=== PATIENT | female | born 1990 | race Caucasian/White ===

== ENCOUNTER 2019-11-28 07:05 | Inpatient (IN) | payer OTHER, SELFPAY ==
[2019-11-28] VITALS (115 sets, daily range): BP systolic 90–146; BP diastolic 45–99; PULSE 36–80; RESP 16; TEMP 36.8–36.9; O2SAT 86–100; BMI 23.0
--- NOTE | 2019-11-28 07:24 | PM.IMHP ---
H&P: HPI History of Present Illness Chief complaint: Contractions Narrative: Florencia Perkins is a 29 year old female whose last menstrual period was 03/16/2019, EDC is 12/21/2019, presents at 36-,5/7 weeks gestation in active labor. Her B strep is pending. Her has been uncomplicated thus far Review of Systems Review of Systems: All systems reviewed & are unremarkable except as noted in HPI and below Meds Home Medications and Allergies Allergies Allergy/AdvReac Type Severity Reaction Status Date / Time No Known Allergies Allergy Unverified 04/03/18 21:19 Exam Const: General: no acute distress Eyes: General: appearance normal, both eyes and all related structures Neck: Neck: supple and no JVD Thyroid: thyroid normal Resp: Effort & Inspection: normal respiratory effort Auscultation: clear to auscultation bilaterally Cardio: Rate: regular rate Rhythm: regular rhythm GI: Inspection: non-distended GI Palp: Yes Soft to palpation, No Tenderness to palpation present (GI) and No Guarding due to palpation present (GI) Auscultation: normal bowel sounds : General: Yes other ( gravid uterus with regular uterine contractions) Bimanual Exam- Adnexa, other: other ( cervix4 by RN exam. heart tones were reassuring) Skin: General skin exam: no rashes or lesions noted Extrem: General: normal to inspection and no edema Psych: Mental Status: mental status grossly normal Affect: normal affect Assessment and Plan Additional Plan impression: 36 and half week in active labor Plan: Spontaneous vaginally with expected. She has an epidural candidate. Group B strep prophylaxis undertaken as status unknown
--- NOTE | 2019-11-28 07:30 | LDADM ---
This patient, Florencia Perkins, was admitted to Labor/Delivery/Recovery 106 on 11/28/19 at 07:05. Plans for labor, pain management and were discussed with patient. Patient/family oriented to hospital policies and general routines including ID bracelet, bed and alarms, visiting hours, pain management, procedures, bathroom and other care routines, personal items, smoking policy, room service/diet and guest tray routines, security routines, and visiting hours. Patient/Family are encouraged to report perceived risks to care and to ask questions if they do not understand what they are told or what they should do. See OBIX for further documentation.
[2019-11-28] MEDS: LACTATED RINGERS 1,000 ML 125 ML IV CONT ×2 (07:54→08:38)
[2019-11-28] MEDS: AMPICILLIN 2 GM/NS 100 ML 2 GM/100 ML BAG IVPB (07:55)
[2019-11-28 08:08] LABS: Basophils Absolute Auto 0.1 K/mm3 (0.0-0.1); Basophils Percent Auto 0.5 % (0.2-1.2); Eosinophils Absolute Auto 0.1 K/mm3 (0-0.3); Eosinophils Percent Auto 1.1 % (0-4.4); Hematocrit 39.7 % (37.0-47.0); Hemoglobin 13.5 g/dL (12.0-15.0); Immature Granulocyte Absolute 0.12 K/mm3 (0.00-0.031); Immature Granulocyte Percent A 1.1 % (0-0.5); Lymphocytes Absolute Auto 2.68 K/mm3 (0.9-3.2); Lymphocytes Percent Auto 23.8 % (18.3-44.2); Mean Corpuscular Hemoglobin 31.3 pg (26-34); Mean Corpuscular Volume 92.1 fl (80-100); Mean Platelet Volume 10.8 fl (7.4-10.4); Monocytes Absolute Auto 0.8 K/mm3 (0.1-0.6); Monocytes Percent Auto 6.7 % (2.6-8.5); Neutrophils Absolute Auto 7.5 K/mm3 (1.3-6.7); Neutrophils Percent Auto 66.8 % (45.5-73.1); Platelet Count Result 191 k/mm3 (150-375); Red Blood Count 4.31 M/mm3 (4.2-5.4); Red Cell Distribution Width 13.5 % (11.5-14.5); White Blood Count 11.3 K/mm3 (4.5-10.0)
--- NOTE | 2019-11-28 08:56 | P.PNOB_ITS ---
OB - PN: Subj Subjective Date/time seen: 11/28/19 08:56 cx 5/80/-1 arom light [facility] fhts ok epidural in OB - PN: Obj Data Labs CBC & Chem 7: 11/28/19 07:58 Labs: Laboratory Results - last 24 hr 11/28/19 07:58 WBC 11.3 H RBC 4.31 Hgb 13.5 Hct 39.7 MCV 92.1 MCH 31.3 MCHC 34.0 RDW 13.5 Plt Count 191 MPV 10.8 H Immature Gran % (Auto) 1.1 H Neut % (Auto) 66.8 Lymph % (Auto) 23.8 [place] % (Auto) 6.7 Eos % (Auto) 1.1 Baso % (Auto) 0.5 Lymph # (Auto) 2.68 [place] # (Auto) 0.8 H Eos # (Auto) 0.1 Baso # (Auto) 0.1 Abs Immat Gran (auto) 0.12 H Absolute Neuts (auto) 7.5 H Absolute Nucleated RBC 0.0 Nucleated RBC % 0.0 OB - PN A/P Time Spent With Patient Time: Total time spent is greater than 50% in coordination of care (as documented) at patient's floor/unit and/or counseling patient:
[2019-11-28 09:30] LABS: Amphetamine Screen Urine Negative (Negative); Barbiturate Screen Urine Negative (Negative); Benzodiazepines Screen Urine Negative (Negative); Cannabinoid Screen Urine Positive (Negative); Cocaine Screen Urine Negative (Negative); Methadone Screen Urine Negative (Negative); Opiate Screen Urine Negative (Negative); Phencyclidine Screen Urine Negative (Negative)
[2019-11-28] MEDS: OXYTOCIN 30 UNITS/NS 500 ML 30 UNITS/500 ML BAG 999 UNITS IV CONT (11:00)
[2019-11-28] MEDS: OXYTOCIN 30 UNITS/NS 500 ML 30 UNITS/500 ML BAG 125 UNITS IV CONT (11:34)
[2019-11-28] MEDS: ONDANSETRON INJ 4 MG/2 ML VIAL IV PUSH (12:58)
[2019-11-28] MEDS: WITCH HAZEL 40 PADS 1 PAD TOPICAL (14:13)
[2019-11-28] MEDS: BENZOCAINE 20% AER SPR (*SP) 56 GM CAN 1 SPRAY TOPICAL (14:13)
[2019-11-28] MEDS: ACETAMINOPHEN 325 MG TABLET 650 MG PO (17:57)
[2019-11-28] MEDS: POLYSACCHARIDE IRON COMPLEX 150 MG CAPSULE PO (17:57)
[2019-11-28] MEDS: IBUPROFEN 600 MG TABLET PO (17:57)
[2019-11-28] MEDS: DOCUSATE SODIUM 100 MG CAPSULE PO (17:57)
[2019-11-28] MEDS: TETANUS,DIPHTHERIA,AC PERTUSSIS ADULT (0.5 ML) BOOSTRIX IM (17:58)
[2019-11-29] VITALS (12 sets, daily range): BP systolic 82–150; BP diastolic 46–92; PULSE 48–66; RESP 14–20; TEMP 36.2–36.7; O2SAT 95–100
[2019-11-29] MEDS: IBUPROFEN 600 MG TABLET PO ×2 (00:44→14:36)
[2019-11-29] MEDS: SIMETHICONE 80 MG TAB.CHEW PO (00:44)
[2019-11-29 05:42] LABS: Hematocrit 29.3 % (37.0-47.0); Hemoglobin 9.8 g/dL (12.0-15.0)
--- NOTE | 2019-11-29 06:42 | PM.OBPNVD ---
OB - PN: Subj Subjective Date/time seen: 11/29/19 06:42 Interval history: btl today Patient comments: no complaints and pain well controlled baby status: doing well and nursing well OB - PN: Obj Data Labs CBC & Chem 7: 11/29/19 05:23 Labs: Laboratory Results - last 24 hr 11/28/19 11/28/19 11/28/19 07:58 07:58 09:03 WBC 11.3 H RBC 4.31 Hgb 13.5 Hct 39.7 MCV 92.1 MCH 31.3 MCHC 34.0 RDW 13.5 Plt Count 191 MPV 10.8 H Immature Gran % (Auto) 1.1 H Neut % (Auto) 66.8 Lymph % (Auto) 23.8 [place] % (Auto) 6.7 Eos % (Auto) 1.1 Baso % (Auto) 0.5 Lymph # (Auto) 2.68 [place] # (Auto) 0.8 H Eos # (Auto) 0.1 Baso # (Auto) 0.1 Abs Immat Gran (auto) 0.12 H Absolute Neuts (auto) 7.5 H Absolute Nucleated RBC 0.0 Nucleated RBC % 0.0 Urine Opiates Screen Negative Urine Methadone Screen Negative Ur Barbiturates Screen Negative Ur Phencyclidine Scrn Negative Ur Amphetamine Screen Negative U Benzodiazepines Scrn Negative Urine Cocaine Screen Negative U Cannabinoids Screen Positive A Blood Type O Positive Antibody Screen Negative 11/29/19 05:23 WBC RBC Hgb 9.8 L D Hct 29.3 L MCV MCH MCHC RDW Plt Count MPV Immature Gran % (Auto) Neut % (Auto) Lymph % (Auto) [place] % (Auto) Eos % (Auto) Baso % (Auto) Lymph # (Auto) [place] # (Auto) Eos # (Auto) Baso # (Auto) Abs Immat Gran (auto) Absolute Neuts (auto) Absolute Nucleated RBC Nucleated RBC % Urine Opiates Screen Urine Methadone Screen Ur Barbiturates Screen Ur Phencyclidine Scrn Ur Amphetamine Screen U Benzodiazepines Scrn Urine Cocaine Screen U Cannabinoids Screen Blood Type Antibody Screen OB - PN A/P Plan day: 1 Comments: btl reviewed Time Spent With Patient Time: Total time spent is greater than 50% in coordination of care (as documented) at patient's floor/unit and/or counseling patient: Time with patient: less than 15 minutes Review of Systems Review of Systems: All systems reviewed & are unremarkable except as noted in HPI and below Exam Const: General: no acute distress Eyes: General: appearance normal, both eyes and all related structures Neck: Neck: supple and no JVD Thyroid: thyroid normal Resp: Effort & Inspection: normal respiratory effort Auscultation: clear to auscultation bilaterally Cardio: Rate: regular rate Rhythm: regular rhythm GI: Inspection: non-distended GI Palp: Yes Soft to palpation, No Tenderness to palpation present (GI) and No Guarding due to palpation present (GI) Auscultation: normal bowel sounds : General: Yes bladder normal to palpation External Female Exam: normal external appearance Speculum Exam - Vagina: normal vaginal discharge and No vaginal bleeding Speculum Exam - Cervix: nontender Bimanual exam- vagina & uterus: bladder normal to palpation and No Cervical tenderness present OB/external & speculum: No vaginal bleeding Skin: General skin exam: no rashes or lesions noted Extrem: General: normal to inspection and no edema Psych: Mental Status: mental status grossly normal Affect: normal affect
[2019-11-29 07:30] LABS: Rapid Plasma Reagin Non-Reactive (NonReactive)
--- NOTE | 2019-11-29 09:49 | WPDANLDPN2 ---
Anes-Prog Note L&D Date/Time: 11/29/19 09:49 Comfortable throughout: labor and delivery Epidural/Spinal procedure site: clean & non-tender Neuro status: Neuro function grossly intact. Cardiovascular status: normal Respiratory status: normal Airway patency: baseline Mental status: baseline Post-Op hydration status: normal Vital Signs: Last Vital Signs Temp 36.7 C 11/29/19 07:25 Pulse 48 L 11/29/19 07:25 Resp 16 11/29/19 07:25 BP 82/46 L 11/29/19 07:25 Pulse Ox 98 11/29/19 07:25 Post-procedural complaints: none Patient feedback: Patient satisfied with anesthetic care.
[2019-11-29] MEDS: LACTATED RINGERS 1,000 ML 30 ML IV CONT (11:15)
--- NOTE | 2019-11-29 11:45 | WPDANESEPPF ---
Anes - Initial Pre Proc Eval Procedure: Operation Date: 11/29/19 12:30 Proposed Procedures p Post- Tubal Ligation - Ilya Camacho MD Date/Time: 11/29/19 11:45 Surgeon: Ilya Camacho MD Pre Op Diagnosis: Contractions Patient Data Age: 29 Gender: F Height: 1.6 m Weight: 59 kg Last Vital Signs Temp 36.7 C 11/29/19 07:25 Pulse 48 L 11/29/19 07:25 Resp 16 11/29/19 07:25 BP 82/46 L 11/29/19 07:25 Pulse Ox 98 11/29/19 07:25 Allergies Allergy/AdvReac Type Severity Reaction Status Date / Time No Known Allergies Allergy Verified 11/28/19 10:22 Home Medications Medication Instructions Recorded Confirmed Type PNV cmb#95-ferrous fumarate-FA 1 tablet PO DAILY 11/28/19 11/28/19 History [] cholecalciferol (vitamin D3) 50,000 unit PO WEEKLY 11/28/19 11/28/19 History hydrocodone-acetaminophen [[place]] 1 tablet PO Q4H PRN #30 tablet 11/29/19 Rx Laboratory Tests 11/28/19 11/29/19 07:58 05:23 Hgb 9.8 g/dL L D g/dL (12.0-15.0) Hct 29.3 % L % (37.0-47.0) RPR Non-reactive (NonReactive) Patient hx anesthesia problems: none Family hx anesthesia problems: none [facility] Social History Social History Smoking packs per day: 1 Smoking cigarettes per day: 20.0 Years smoked: 11 Smoking pack-years: 11.00 Smoking status: Current every day smoker Tobacco type: cigarettes Second hand tobacco smoke exposure: Yes Additional smoking assessment comments: Has cut down to .75 PPD during Substance use: current Last use: 11/27/19 Spiritual care concerns: No Anes - Eval Final PreProcedure Day of Procedure 11/29/19 11:45 Patient weight: normal Heart: regular rate and rhythm Lungs: clear to auscultation and normal air movement Airway: Mallampati scale class II Neurological: alert and oriented Last oral intake: >/= 8 hours ASA classification: II Emergent: no Anesthetic plan: proceed Anesthesia type and monitoring: general Informed Consent: The patient's anesthetic plan and its attendant risks and benefits were discussed with the patient/family/POA. Questions were solicited and answers provided to the satisfaction of the patient/family/POA.
--- NOTE | 2019-11-29 12:05 | SUR.PREOP ---
1110 EPIDURAL CATHETER NOTED TO BACK
--- NOTE | 2019-11-29 12:57 | PM.PROC ---
Procedure Note - Detailed Date of procedure: 11/29/19 Pre-op diagnosis: Contractions Surgeon: Ilya Camacho MD Postop diagnosis: day 1 desires permanent sterilization Procedure: Modified Ann bilateral tubal ligation EBL: 5Cc Anesthesia: General endotracheal Complications: None Findings: Normal uterus normal ovaries and tubes Description of procedure: Patient was prepped draped in normal sterile fashion placed in supine position. Under excellent general trach anesthesia the abdomen was entered through a small infraumbilical incision this was carried through the layers to the fascia fascia was incised and the peritoneum was opened by sharp dissection. The left fallopian tube was grasped at its midportion. This was traversed to the inferior created in reverse to the midportion. A good knuckle of tube was free tied with 0 chromic the peritoneum between was pierced and the distal proximal legs were free tied with 0 the portion between incised with Metzenbaum scissors passed as well portion of left fallopian tube. Hemostasis was assured in this was returned to the abdomen. The right fallopian tube was then grasped visits midportion traversed to the fimbriated end and return 1st to the midportion. Free tie 0 chromic was made knuckle of tube with 0 chromic. Peritoneum was pierced and the distal proximal portion was free tied portion between cut and passed as portion right fallopian tube. Hemostasis was assured tube was returned to the abdomen laps removed and accounted for the fascia was closed with continuous running 0 Vicryl lateral edge to lateral edge skin closed with 4 Monocryl and glue patient was awakened and went to recovery in satisfactory condition. All sponge, needle, instrument counts were correct. There were no immediate complications
--- NOTE | 2019-11-29 12:59 | P.DS_ITS ---
DS: Admitting Diagnosis Admitting Diagnosis Admitting Diagnosis: term/desires sterilization DS: Summary Time Spent with Patient Time attestation: Total time spent providing and/or coordinating discharge services: Exam Const: General: no acute distress Eyes: General: appearance normal, both eyes and all related structures Neck: Neck: supple and no JVD Thyroid: thyroid normal Resp: Effort & Inspection: normal respiratory effort Auscultation: clear to auscultation bilaterally Cardio: Rate: regular rate Rhythm: regular rhythm GI: Inspection: non-distended GI Palp: Yes Soft to palpation, No Tenderness to palpation present (GI) and No Guarding due to palpation present (GI) Auscultation: normal bowel sounds : General: Yes bladder normal to palpation External Female Exam: normal external appearance Speculum Exam - Vagina: normal vaginal discharge and No vaginal bleeding Speculum Exam - Cervix: nontender Bimanual exam- vagina & uterus: bladder normal to palpation and No Cervical tenderness present OB/external & speculum: No vaginal bleeding Skin: General skin exam: no rashes or lesions noted Extrem: General: normal to inspection and no edema Psych: Mental Status: mental status grossly normal Affect: normal affect DS: Data Data Completed and Pending Pending studies at discharge: Pending at discharge 11/29/19 12:41 Surgical [PTH] Routine Labs on day of discharge: Labs from last 24 hours 11/29/19 11/28/19 05:23 07:58 Hgb 9.8 L D Hct 29.3 L RPR Non-reactive Discharge Plan Discharge Attending physician on discharge: Ilya Camacho Discharging Clinician: Ilya Camacho Patient Disposition: Home, Self-Care Activity: may shower, no straining, may drive after 2 weeks and pelvic rest Diet: heart healthy Wound Care Instructions: incision open to air Patient Instructions: Antibiotic Form Stand Alone Forms: General Discharge Information Follow-up/Referrals: Ilya Camacho MD [Physician] - Discharge Medications: New hydrocodone-acetaminophen [[place]] 5-325 mg tablet 1 tablet PO Q4H PRN (Reason: pain) Qty: 30 RF: 0 Continued cholecalciferol (vitamin D3) 1,250 mcg (50,000 unit) capsule 50,000 unit PO WEEKLY RF: 0 PNV cmb#95-ferrous fumarate-FA [] 28 mg iron- 800 mcg Tablet 1 tablet PO DAILY RF: 0 Date of admission: 11/28/19 07:05 Primary Care Provider: PHYSICIAN,UPPER CUTTER MACHINE Admitting Provider: Ilya Camacho Attending physician on admission: Ilya Camacho
[2019-11-29] MEDS: ACETAMINOPHEN 325 MG TABLET 650 MG PO (14:35)
[2019-11-29] MEDS: DOCUSATE SODIUM 100 MG CAPSULE PO (14:36)
[2019-11-29] MEDS: POLYSACCHARIDE IRON COMPLEX 150 MG CAPSULE PO (14:36)
--- NOTE | 2019-11-29 14:42 | PC.NURSE ---
Pt received back from PACU per stretcher. Alert and oriented x3. Pt. ambulated to bathroom with assistance and voided without difficulty.
--- NOTE | 2019-12-10 13:30 | PM.DS ---
DS: Admitting Diagnosis Admitting Diagnosis Admitting Diagnosis: Encounter for supervision of normal , unspecified, third trimester desires sterilization DS: Summary Time Spent with Patient Time attestation: Total time spent providing and/or coordinating discharge services: Exam Const: General: no acute distress Eyes: General: appearance normal, both eyes and all related structures Neck: Neck: supple and no JVD Thyroid: thyroid normal Resp: Effort & Inspection: normal respiratory effort Auscultation: clear to auscultation bilaterally Cardio: Rate: regular rate Rhythm: regular rhythm GI: Inspection: non-distended GI Palp: Yes Soft to palpation, No Tenderness to palpation present (GI) and No Guarding due to palpation present (GI) Auscultation: normal bowel sounds : General: Yes bladder normal to palpation External Female Exam: normal external appearance Speculum Exam - Vagina: normal vaginal discharge and No vaginal bleeding Speculum Exam - Cervix: nontender Bimanual exam- vagina & uterus: bladder normal to palpation and No Cervical tenderness present OB/external & speculum: No vaginal bleeding Skin: General skin exam: no rashes or lesions noted Extrem: General: normal to inspection and no edema Psych: Mental Status: mental status grossly normal Affect: normal affect DS: Data Data Completed and Pending Completed studies during hospitalization: Pending at discharge 11/29/19 12:41 Surgical [PTH] Routine Discharge Plan Discharge Attending physician on discharge: Ilya Camacho Consulting providers: Cameron Gonzalez Discharging Clinician: Ilya Camacho Patient Disposition: Home, Self-Care Activity: may shower, no straining, may drive after 2 weeks and pelvic rest Diet: heart healthy Wound Care Instructions: incision open to air Discharge Instructions: Education: Mom and Baby Guide Given to: Follow-Up: Call your delivering provider's office for an appointment to be seen. Mom and baby should come to the [facility] for the follow-up appointment. Appointment Date/Time: December 01, 2019 at 10:00 am What to expect at your follow-up visit: Physical Assessment Call [phone] if you are unable to keep your appointment time. BREAST CARE: * Wear a snug supportive bra. * For engorgement discomfort: Bottle Feeding: * May apply ice packs ABDOMINAL INCISION: * Allow incision to air dry * Do NOT use lotions for powders on your incision * When showering, allow soap and water to run over the incision, but do not wash incision PERINEAL CARE: * Until bleeding stops, use your jf bottle after urinating * Change your pad frequently throughout the day * No tub baths until seen by your physician - You may shower ACTIVITY: * Rest as much as possible. * Do not exercise or lift anything heavier than your baby (such as laundry or other children.) * Avoid stairs or driving as much as possible. * Do not put anything into the vagina. No douching, tampons, or sexual activity until seen by physician. NOTIFY PHYSICIAN IF YOU HAVE ANY QUESTIONS OR IF ANY OF THE FOLLOWING SYMPTOMS OCCUR: * If your perineum becomes red, swollen, or more painful than what you have experienced in the hospital. * If your vaginal bleeding becomes foul smelling. * If your vaginal bleeding becomes more heavy than a period or if your bleeding changes from pink to bright red. However, you may pass an occasional walnut-sized clot once or twice for the first week . * If you experience a sharp, shooting pain in you calves. * If you discover a hard, reddened area on your breast or if you experience flu-like symptoms. DIET: * Eat regular, well-balanced meals. * Drink plenty of fluids daily. Stand Alone Forms: General Discharge Information Follow-up/Referrals: Ilya Camacho MD [Physician] - Discharge Medications: New hydrocodone-acetaminophen [[place]]
--- NOTE | 2019-12-12 10:53 | PM.OBPRVD ---
OB - Delivery Note Procedure Procedure: Procedures Operation Date: 11/29/19 12:30 Actual Procedures Side Surgeon p Post- Tubal Ligation Not Applicable Ilya Camacho MD Intrapartal events: None Induction method: AROM Delivery augmentation: pitocin Delivery monitor: external FHT Route of delivery: Episiotomy description: None Specimen: No Estimated blood loss (mL): 57 Anesthesia type: Epidural Disposition: floor Baby Weeks of gestation at delivery: 39 presentation: vertex position: Right Occiput Anterior cord vessel description: 3 Vessels
== END 2019-11-29 17:59 | disposition home or self-care (01) | DRG 541 ==
LOC: ANHLDR 11:07 → ANHOB2 14:29
PROVIDERS: Admitting Provider Obstetrics & Gynecology; Visit Provider Obstetrics & Gynecology
PROC: 0UL77ZZ Occlusion of Bilateral Fallopian Tubes, Via Natural or Artificial Opening (ICD-10-PCS; CPT 58605; principal; 2019-11-29 12:30)
DX: O77.0 Labor and delivery complicated by meconium in amniotic fluid (principal); Z37.0 Single live birth; Z3A.36 36 weeks gestation of pregnancy; O99.334 Smoking (tobacco) complicating childbirth; F17.210 Nicotine dependence, cigarettes, uncomplicated; O99.324 Drug use complicating childbirth; F12.90 Cannabis use, unspecified, uncomplicated; Z30.2 Encounter for sterilization
CPT/HCPCS: 36415; 80307; 85014; 85018; 85025; 86592; 86850; 86900; 86901; 88302; 90715; A9270; J0290; J0330; J1100; J1885; J2250; J2405; J2590; J2704; J2795; J3010; J7120

== ENCOUNTER 2022-01-13 08:35 | Emergency (ER) | payer OTHER, SELFPAY ==
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
--- NOTE | ~2022-01-13 | CT_ITS ---
EXAMINATION: CT facial & cervical spine wo DATE: 01/13/2022 09:52 INDICATION: Head injury. TECHNIQUE: Computed tomography (CT) of the maxillofacial region and cervical spine was performed with out intravenous contrast. Automated exposure control and iterative reconstruction technique were empl oyed. The dose-length product was 209.52 mGy-cm. COMPARISON: CT maxillofacial 08/07/14 FINDINGS: MAXILLOFACIAL CT: There is left cheek soft tissue swelling. There is leftward deviation of the nasal septum. There is a fracture of left nasal process of maxilla. There is minimal mucosal thickening in left maxillary sin us. There are carious lesions of bilateral mandibular molars. There are carious lesions of teeth 7 an d 8 with periapical lucencies. CERVICAL SPINE CT: There is mild kyphosis of cervical spine. Vertebral body heights and intervertebral disc heights are normal. At C7-T1, there is bilateral mild facet joint osteoarthritis. No neural foraminal stenosis or central canal stenosis. There is mild emphysema. IMPRESSION: 1. Fracture of left nasal process of maxilla. 2. Dental disease. Reviewed, dictated and finalized at location A.
[2022-01-13 08:39] VITALS: BP 127/89; PULSE 77; RESP 16; TEMP 36.4; O2SAT 99
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
--- NOTE | 2022-01-13 09:20 | PC.NURSE ---
pt wandered to lobby. pt redirected back to room.
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
[2022-01-13 09:43] LABS: Basophils Percent Auto 0.4 % (0.2-1.2); Eosinophils Percent Auto 0.1 % (0-4.4); Hematocrit 42.3 % (37.0-47.0); Hemoglobin 14.2 g/dL (12.0-15.0); Immature Granulocyte Absolute 0.08 K/mm3 (0.00-0.031); Immature Granulocyte Percent A 0.8 % (0-0.5); Lymphocytes Absolute Auto 1.24 K/mm3 (0.9-3.2); Lymphocytes Percent Auto 12.8 % (18.3-44.2); Mean Corpuscular HGB Conc 33.6 g/dl (32-36); Mean Corpuscular Hemoglobin 31.8 pg (26-34); Mean Corpuscular Volume 94.8 fl (80-100); Mean Platelet Volume 8.5 fl (7.4-10.4); Monocytes Absolute Auto 0.7 K/mm3 (0.1-0.6); Monocytes Percent Auto 6.9 % (2.6-8.5); Neutrophils Absolute Auto 7.6 K/mm3 (1.3-6.7); Platelet Count Result 228 k/mm3 (150-375); Red Blood Count 4.46 M/mm3 (4.2-5.4); Red Cell Distribution Width 13.2 % (11.5-14.5); White Blood Count 9.7 K/mm3 (4.5-10.0)
--- NOTE | 2022-01-13 09:52 | PC.NURSE ---
pt out to lobby again asking people in the vestibule if they smoke. pt told she needed to go back to room. pt became verbally aggressive stating she needed a cigarette. pt asked by myself, jean, and to go back to room. pt escalating. ayad roberts, told patient she can either go back to room and leave AMA as we are waiting for tests and imaging. pt chose to leave ama. pt called staff asshole as she ambulated away. pt ambulated with steady gait out of building and appeared to be in no distress.
--- NOTE | 2022-01-13 09:59 | PC.NURSE ---
Pt walks to dental front office assistant wanting to smoke a cigarette. Pt was informed by security and senior c developer that this is a no smoking campus and she should return to her room. Pt asks if she smokes a cigarette if they will kick her out and security informs her that they have the capability to do so. Pt becoming agitated and stating she is going to leave. This RN removes pt IV before she walks out calling us assholes under her breath.
[2022-01-13 10:05] LABS: Ethanol 189 mg/dL (<10)
[2022-01-13 10:06] LABS: Alanine Aminotransferase 21 U/L (6-35); Albumin Level 4.6 g/dL (3.5-5.1); Alkaline Phosphatase 67 U/L (38-126); Anion Gap 16 mmol/L (8-16); Aspartate Amino Transferase 40 U/L (14-36); Bilirubin,Total 0.7 mg/dL (0.2-1.3); Blood Urea Nitrogen 7 mg/dL (7-17); Calcium 8.2 mg/dL (8.4-10.2); Carbon Dioxide 21 mmol/L (22-30); Chloride 110 mmol/L (98-107); Estimated CRCL calculation 97 ml/min; Estimated Glomerular Filt Rate > 60; Glucose 126 mg/dL (65-110); Potassium 3.6 mmol/L (3.4-5.0); Sodium 147 mmol/L (137-145)
== END 2022-01-13 10:42 | disposition left against medical advice (07) ==
PROVIDERS: Emergency Provider Nurse Practitioner Family
DX: O9A.219 Injury, poisoning and certain other consequences of external causes complicating pregnancy, unspecified trimester (principal); S00.12XA Contusion of left eyelid and periocular area, initial encounter; S00.11XA Contusion of right eyelid and periocular area, initial encounter; S02.40DA Maxillary fracture, left side, initial encounter for closed fracture; O99.330 Smoking (tobacco) complicating pregnancy, unspecified trimester; F17.210 Nicotine dependence, cigarettes, uncomplicated; Z3A.00 Weeks of gestation of pregnancy not specified; Y04.2XXA Assault by strike against or bumped into by another person, initial encounter
CPT/HCPCS: 36415; 70450; 70486; 72125; 80053; 80307; 85025; 99284

== ENCOUNTER 2025-03-05 07:14 | Emergency (ER) | payer OTHER, SELFPAY ==
[2025-03-05 08:01] VITALS: BP 112/80; PULSE 120; RESP 16; TEMP 36.8; O2SAT 100
[2025-03-05] MEDS: KETOROLAC 15 MG/ML VIAL (*BKC) IV PUSH (08:16)
[2025-03-05] MEDS: ONDANSETRON INJ 4 MG/2 ML VIAL IV PUSH (08:16)
[2025-03-05] MEDS: LACTATED RINGERS 1,000 ML 999 ML IV CONT ×2 (08:17→10:21)
[2025-03-05 08:31] LABS: Hematocrit 45.9 % (37.0-47.0); Hemoglobin 15.6 g/dL (12.0-15.0); Immature Granulocyte Percent A 0.8 % (0-0.5); Lymphocytes Absolute Auto 1.09 K/mm3 (0.9-3.2); Mean Corpuscular HGB Conc 34.0 g/dl (32-36); Mean Corpuscular Hemoglobin 30.1 pg (26-34); Mean Corpuscular Volume 88.6 fl (80-100); Nucleated Red Blood Cells Absolute Auto 0.000 K/mm3 (0.0-0.012); Nucleated Red Blood Cells Perc 0.0 % (0.0-0.2); Platelet Count Result 196 k/mm3 (150-375); Red Blood Count 5.18 M/mm3 (4.2-5.4); White Blood Count 10.6 K/mm3 (4.5-10.0)
[2025-03-05 08:55] LABS: Alanine Aminotransferase 17 U/L (6-35); Albumin Level 4.2 g/dL (3.5-5.1); Alkaline Phosphatase 74 U/L (38-126); Anion Gap 10 mmol/L (4-12); Aspartate Amino Transferase 19 U/L (14-36); Bilirubin,Total 1.1 mg/dL (0.2-1.3); Blood Urea Nitrogen 10 mg/dL (7-17); Calcium 8.8 mg/dL (8.4-10.2); Carbon Dioxide 23 mmol/L (22-30); Chloride 97 mmol/L (98-107); Estimated CRCL calculation 80 ml/min; Estimated Glomerular Filt Rate > 60; Glucose 167 mg/dL (65-110); Sodium 130 mmol/L (137-145); Total Protein 7.5 g/dL (6.3-8.2)
[2025-03-05 09:03] LABS: Potassium 3.4 mmol/L (3.4-5.0)
[2025-03-05] MEDS: ACETAMINOPHEN 500 MG TABLET 1000 MG PO (10:21)
[2025-03-05] MEDS: METOCLOPRAMIDE HCL INJ 10 MG/2 ML VIAL IV PUSH (10:21)
[2025-03-05 10:27] VITALS: BP 108/85; PULSE 99; RESP 16; O2SAT 99
[2025-03-05 11:38] LABS: Influenza A QL RT-PCR Negative (Negative); Influenza B QL RT-PCR Negative (Negative); RSV RNA, RT-PCR Negative (Negative); SARS-CoV-2 RNA PCR Negative (Negative)
[2025-03-05 12:00] VITALS: BP 99/72; PULSE 80; RESP 14; TEMP 36.5; O2SAT 97
--- NOTE | 2025-03-05 13:38 | ED_ITS ---
HPI - General Adult General Chief complaint: Unspecified Stated complaint: sick for days Time Seen by Provider: 03/05/25 08:00 History of Present Illness HPI narrative: Patient presents because for last few days she has been feeling sick, body aches, nausea vomiting diarrhea, fevers and chills and sweats, unable to keep anything down. Related Data Home Medications ?Medication ?Instructions ?Recorded ?Confirmed ?Last Taken ?Type cholecalciferol (vitamin D3) 1,250 50,000 unit PO WEEK LY 11/28/19 11/28/19 11/25/19 History mcg (50,000 unit) capsule vit no.95-ferrous 1 tablet PO DAILY 11/28/19 11/28/19 11/27/19 History fumarate 28 mg-folic acid 800 mcg tablet () Allergies Allergy/AdvReac Type Severity Reaction Status Date / Time No Known Allergies Allergy Verified 03/05/25 07:24 Review of Systems 2 Review of Systems: All systems reviewed & are unremarkable except as noted in HPI and below PMFSH Social History Social History Smoking packs per day: 1 Smoking cigarettes per day: 20.0 Years smoked: 11 Smoking pack-years: 11.00 Smoking status: Current every day smoker Tobacco type: cigarettes Second hand tobacco smoke exposure: Yes Additional smoking assessment comments: Has cut down to .75 PPD during Substance use: current Last use: 11/27/19 Spiritual care concerns: No Exam 2 Narrative: EXAMINATION OF ORGAN SYSTEMS/BODY AREAS: Constitutional: Vital signs per nursing GENERAL: Appears uncomfortable in the bed, holding an emesis bag and looking quite tired HEAD: Normal with no signs of head trauma. EYES: EOMI, conjunctiva normal ENT: Dry mucous membranes LUNGS: Nonlabored breathing. HEART: [Regular rate and rhythm] ABD: [Soft], [nontender to palpation] EXT: Normal range of motion SKIN: [No rashes or lesions.] NEURO: [Alert. No gross focal sensory or strength deficits.] PSYCH: Normal affect Course Vital Signs Vital signs: Vital Signs Temperature 98.2 F 03/05/25 08:01 Pulse Rate 120 H 03/05/25 08:01 Respiratory Rate 16 03/05/25 08:01 Blood Pressure 112/80 03/05/25 08:01 Pulse Oximetry 100 03/05/25 08:01 Oxygen Delivery Room Air 03/05/25 08:01 Temperature 97.7 F 03/05/25 12:00 Pulse Rate 80 03/05/25 12:00 Respiratory Rate 14 03/05/25 12:00 Blood Pressure 99/72 L 03/05/25 12:00 Pulse Oximetry 97 03/05/25 12:00 Oxygen Delivery Room Air 03/05/25 08:01 Medical Decision Making MDM Narrative Medical decision making narrative: ED COURSE AND MEDICAL DECISION MAKING: This 34 year old patient presents with symptoms most suggestive of viral syndrome. No respiratory distress or accessory muscle use. Abdomen soft nontender. Dry mucous membranes. No signs of meningismus, she is moving her head and neck normally. Patient is treated symptomatically with Toradol, Zofran, fluids. On re-evaluation, she still not feeling well and still feeling sweaty. I did then give a dose of Tylenol, Reglan, benadryl, fluids. On reevaluation, she is improved, feels much better, would like to go home at this time, vital signs are now improved. She is discharged home in stable condition with expectant management. Return precautions were provided. Vital Signs Vital Signs: Vital Signs Temperature 98.2 F 03/05/25 08:01 Pulse Rate 120 H 03/05/25 08:01 Respiratory Rate 16 03/05/25 08:01 Blood Pressure 112/80 03/05/25 08:01 Pulse Oximetry 100 03/05/25 08:01 Oxygen Delivery Room Air 03/05/25 08:01 Temperature 97.7 F 03/05/25 12:00 Pulse Rate 80 03/05/25 12:00 Respiratory Rate 14 03/05/25 12:00 Blood Pressure 99/72 L 03/05/25 12:00 Pulse Oximetry 97 03/05/25 12:00 Oxygen Delivery Room Air 03/05/25 08:01 Lab Data 03/05/25 08:24 03/05/25 08:24 Labs: Lab Results 03/05/25 Range/Units 08:24 WBC 10.6 H (4.5-10.0) K/mm3 RBC 5.18 (4.2-5.4) M/mm3 Hgb 15.6 H (12.0-15.0) g/dL Hct 45.9 (37.0-47.0) % MCV 88.6 (80-100) fl MCH 30.1 (26-34) pg MCHC 34.0 (32-36) g/dl RDW 12.1 (11.5-14.5) % Plt Count 196 (150-375) k/mm3 MPV 9.1 (7.4-10.4) fl Immature Gran % (Auto) 0.8 H (0-0.5) % Neut % (Auto) 79.0 H (45.5-73.1) % Lymph % (Auto) 10.3 L (18.3-44.2) % Kinney % (Auto) 9.7 H (2.6-8.5) % Eos % (Auto) 0.0 (0-4.4) % Baso % (Auto) 0.2 (0.2-1.2) % Lymph # (Auto) 1.09 (0.9-3.2) K/mm3 Kinney # (Auto) 1.0 H (0.1-0.6) K/mm3 Eos # (Auto) 0.0 (0-0.3) K/mm3 Baso # (Auto) 0.0 (0.0-0.1) K/mm3 Abs Immat Gran (auto) 0.08 H (0.00-0.031) K/mm3 Absolute Neuts (auto) 8.4 H (1.3-6.7) K/mm3 Absolute Nucleated RBC 0.000 (0.0-0.012) K/mm3 Nucleated RBC % 0.0 (0.0-0.2) % Sodium 130 L (137-145) mmol/L Potassium 3.4 (3.4-5.0) mmol/L Chloride 97 L (98-107) mmol/L Carbon Dioxide 23 (22-30) mmol/L Anion Gap 10 (4-12) mmol/L BUN 10 (7-17) mg/dL Creatinine 0.82 (0.7-1.0) mg/dL Estim Creat Clear Calc 80 ml/min Estimated GFR > 60 (59 - ) Glucose 167 H (65-110) mg/dL Calcium 8.8 (8.4-10.2) mg/dL Total Bilirubin 1.1 (0.2-1.3) mg/dL AST 19 (14-36) U/L ALT 17 (6-35) U/L Alkaline Phosphatase 74 (38-126) U/L Total Protein 7.5 (6.3-8.2) g/dL Albumin 4.2 (3.5-5.1) g/dL Influenza A (RT-PCR) Negative (Negative) Influenza B (RT-PCR) Negative (Negative) RSV (RT-PCR) Negative (Negative) SARS-CoV-2 RNA (RT-PCR) Negative (Negative) Discharge Plan Discharge Clinical Impression: Nausea vomiting and diarrhea Patient Disposition: Home Condition: Stable Instructions: Viral Syndrome (ED) Additional Instructions: Please follow up with your doctor; you can always return for any further issues. Patient Language: Kyrgyz Prescriptions: New acetaminophen [Tylenol Extra Strength] 500 mg tablet 1,000 mg PO Q6H PRN (Reason: pain) Qty: 50 0RF famotidine 20 mg tablet 20 mg PO DAILY Qty: 30 0RF ondansetron 4 mg tablet,disintegrating 4 mg PO Q8H PRN (Reason: nausea and vomiting) Qty: 10 0RF No Action cholecalciferol (vitamin D3) 1,250 mcg (50,000 unit) capsule 50,000 unit PO WEEKLY PNV no.95-ferrous fumarate-FA [] 28 mg iron- 800 mcg Tablet 1 tablet PO DAILY hydrocodone-acetaminophen [[place]] 5-325 mg tablet 1 tablet PO Q4H PRN (Reason: pain) Qty: 30 0RF Follow-up/Referrals: PHYSICIAN,MACHINE OPERATOR [facility]ICKER [Primary Care Provider, Internal Medicine]
== END 2025-03-05 12:00 | disposition home or self-care (01) ==
PROVIDERS: Emergency Provider Emergency Medicine
DX: R11.2 Nausea with vomiting, unspecified (principal); R19.7 Diarrhea, unspecified; F17.210 Nicotine dependence, cigarettes, uncomplicated; Z20.822 Contact with and (suspected) exposure to COVID-19
CPT/HCPCS: 36415; 80053; 85025; 87637; 96361; 96374; 96375; 99284; A9270; J1200; J1885; J2405; J2765; J7120